=== PATIENT | male | born 1930 | race Caucasian/White ===

== ENCOUNTER 2017-01-05 16:12 | Inpatient (IN) | payer OTHER, BC ==
--- NOTE | 2017-01-05 16:31 | PDOC ---
Attending Attestation - Resident Resident Name: Eduardo Phillips - HPI HPI: 01/09/17 14:23 Pt presents to the ED complaining of R hip pain after mechanical fall. unable to ambulate after incident. - Physicial Exam PE: 01/09/17 14:24 Agree with above. R leg intact, shortened and externally rotated. - Medical Decision Making 01/09/17 14:24 Pt presents to the ED with hip pain after mechanical trip and fall. + intratrochanteric fx on xray. will admit to medicine and call orthopedics.
--- NOTE | 2017-01-05 16:38 | PDOC ---
History of Present Illness - General Chief Complaint: Injury Stated Complaint: FELL Time Seen by Provider: 01/05/17 16:15 - History of Present Illness Initial Comments: 01/05/17 16:29 86 yo M with h/o HLD, HTN, CAD, CABG, Prostate ca. and OA who presents with right hip pain following recent fall. Pt. states that he was sitting on his dining room chair 40 minutes ago and he attempted to stand up from his seat. He reached to grab the back of the chair and slipped, landing on his right hip. Pt. has been immobile since fall and arrived via EMS. He now complains of right sided proximal extremity pain at the right thigh and right hip. Pain aggravated with movement. Denies head/ elbow trauma or falling on an outstretched hand. Pt. with chronic numbness/tingling of right lower extremity d /t chemotherapy treatment. Denies Burning of distal extremities or new onset weakness. Denies BERGMAN, lightheadedness, LOC, SOB, neck stiffness. Does not ambulate with assistive device. Past History - Past Medical History Allergies/Adverse Reactions: Allergies Allergy/AdvReac Type Severity Reaction Status Date / Time No Known Allergies Allergy Verified 05/06/16 16:35 Home Medications: Ambulatory Orders Amlodipine Besylate [Norvasc -] 2.5 mg PO BID 01/05/17 Ascorbic Acid [Vitamin C -] 1,000 mg PO DAILY 01/05/17 Aspirin [Ecotrin] 81 mg PO BID 01/05/17 Clonidine HCl [Catapres -] 0.2 mg PO BID 01/05/17 Furosemide [Lasix -] 40 mg PO BID 01/05/17 Metoprolol Succinate [Toprol Xl -] 25 mg PO DAILY 01/05/17 Rosuvastatin [Crestor -] 20 mg PO DAILY 01/05/17 Valsartan/Hydrochlorothiazide [Valsartan-Hctz 320-12.5 mg Tab] 1 each PO DAILY 01/05/17 Cancer: Yes (PROSTATE CA) Cardiac Disorders: Yes (cardiac stents) HTN: Yes Hypercholesterolemia: Yes Kidney Stones: (nephrolithiasis) Suicide Attempt (Hx): No - Surgical History Abdominal Surgery: (3 stents) Cardiac Surgery: Yes (3 STENTS) - Psycho/Social/Smoking Cessation Hx Anxiety: No Suicidal Ideation: No Smoking Status: No Smoking History: Former smoker Years of Tobacco Use: 48 Have you smoked in the past 12 months: No Number of Cigarettes Smoked Daily: 0 If you are a former smoker, when did you quit?: smoked from age 20 to 59 Hx Alcohol Use: Yes (WINE WITH DINNER) Drug/Substance Use Hx: No Substance Use Type: None Hx Substance Use Treatment: No Review of Systems - Review of Systems Comments:: 01/05/17 16:38 GENERAL/CONSTITUTIONAL: No fever or chills. No weakness. HEAD, EYES, EARS, NOSE AND THROAT: No change in vision. No ear pain or discharge. No sore throat. CARDIOVASCULAR: No chest pain or shortness of breath RESPIRATORY: No cough, wheezing, or hemoptysis. GASTROINTESTINAL: No nausea, vomiting, diarrhea or constipation. GENITOURINARY: No dysuria, frequency, or change in urination. MUSCULOSKELETAL: +right hip pain. No neck or back pain. SKIN: No rash NEUROLOGIC: No headache, vertigo, loss of consciousness, or change in strength/ sensation. ENDOCRINE: No increased thirst. No abnormal weight change HEMATOLOGIC/LYMPHATIC: No anemia, easy bleeding, or history of blood clots. ALLERGIC/IMMUNOLOGIC: No hives or skin allergy. *Physical Exam - Physical Exam Comments: 01/05/17 17:00 GENERAL: Awake, alert, and fully oriented, in no acute distress HEAD: No signs of trauma, normocephalic, atraumatic EYES: PERRLA, EOMI, sclera anicteric, conjunctiva clear ENT: Auricles normal inspection, hearing grossly normal, nares patent, oropharynx clear without exudates. Moist mucosa NECK: Normal ROM, supple, no lymphadenopathy, JVD, or masses LUNGS: No distress, speaks full sentences, clear to auscultation bilaterally HEART: Regular rate and rhythm, normal S1 and S2, no murmurs, rubs or gallops, peripheral pulses normal and equal bilaterally. ABDOMEN: Soft, nontender, normoactive bowel sounds. No guarding, no rebound. No masses EXTREMITIES: Normal inspection, Normal range of motion. No clubbing or cyanosis. Palpable, equal, and symmetric posterior tibial pulses BL. BL L Edema BL. Left Leg / hip: Pain with passive flexion/extension, adduction/abduction of left thigh. Left leg is shortened and externally rotated. Limited exam d/t pain with active movement. Absent ecchymosis, and absent bony deformities. SKIN: Warm, Dry, normal turgor, no rashes or lesions noted. ED Treatment Course - RADIOLOGY Radiology Studies Ordered: Category Date Time Status HIP & PELVIS-RIGHT [RAD] Stat Radiology 01/05/17 16:28 Ordered Radiograph Interpretation: 01/05/17 19:45 Referring Physician: Eduardo Alan Patient Name: Cuauhtemoc Do THIS IS A PRELIMINARY REPORT FROM [facility] [employer] ADJUSTER IMAGES: 5 EXAM DATE AND TIME: 16:53:56.0 EXAM: X-RAY PELVIS AND RIGHT HIP Acute intertrochanteric fracture right femur with lesser trochanteric fragment displaced 14 mm medially. Surgical clips near lower pelvis. Clothing artifact projects over proximal thighs. Possible bone island left ilium. THIS DOCUMENT HAS BEEN ELECTRONICALLY SIGNED Geno Doyle M.D. 01/05/2017 19:14 DURGA Cano Please call [facility] [employer] [phone]) with questions. Medical Decision Making - Medical Decision Making 01/05/17 16:40 86 yo M with h/o HLD, HTN, CAD, CABG, Prostate ca. and OA who presents with right hip pain following recent fall. Pt. states that he was sitting on his dining room chair 40 minutes ago and he attempted to stand up from his seat. He reached to grab the back of the chair and slipped, landing on his right hip. He now complains of right sided proximal extremity pain at the right anterior thigh and right hip. No head/neck/back injury. Absent s/s of neurovascular injury/compromise. Physical exam reveals right leg externally rotated and slightly shortened. Pt.is hemodynamically stable. Obtain plain film left leg to r/o femoral dislocation/fracture. ED Course: 01/05/17 17:45 HIP AND PELVIS RIGHT RAD: 01/05/17 19:45 Referring Physician: Eduardo Phillips Patient Name: Cuauhtemoc Do THIS IS A PRELIMINARY REPORT FROM [facility] IMAGES: 5 EXAM DATE AND TIME: 16:53:56.0 EXAM: X-RAY PELVIS AND RIGHT HIP Acute intertrochanteric fracture right femur with lesser trochanteric fragment displaced 14 mm medially. Surgical clips near lower pelvis. Clothing artifact projects over proximal thighs. Possible bone island left ilium. THIS DOCUMENT HAS BEEN ELECTRONICALLY SIGNED Geno Doyle M.D. 01/05/2017 19:14 DURGA Cano Please call [facility] [employer] [phone] with questions. Per phone conversation with Dr. Davis admit to [facility] and consult Dr. Ramos. *DC/Admit/Observation/Transfer Diagnosis at time of Disposition: Trochanteric fracture of right femur Qualifiers: Encounter type: initial encounter Fracture type: closed Qualified Code(s): S72.101A - Unspecified trochanteric fracture of right femur, initial encounter for closed fracture - Discharge Dispostion Admit: Yes - Referrals Referrals: Buck Torres MD [Primary Care Provider] - - Attestations Physician Attestion: 01/05/17 20:04 I, Dr. Eduardo Phillips, attest that this document has been prepared under my direction and personally reviewed by me in its entirety. I further attest, that it accurately reflects all work, treatment, procedures and medical decision -making performed by me.
[2017-01-05 21:21] LABS: BASOPHIL 0.6 % (0-2.0); EOSINOPHIL 0.2 % (0-4.5); MCH 26.6 pg (25.7-33.7); MCHC 32.3 g/dl (32.0-35.9); MEAN CELL VOLUME 82.4 fl (80-96); MEAN PLT VOLUME 8.1 fl (7.5-11.1); NEUTROPHILS 89.9 % (42.8-82.8); PLATELET COUNT 323 K/MM3 (134-434); RDW 18.8 % (11.9-15.9)
[2017-01-05 21:34] LABS: INR 1.12 (0.82-1.09); PROTHROMBIN TIME (PATIENT) 12.4 SEC (9.98-11.88)
[2017-01-05 21:43] LABS: ALBUMIN 3.1 g/dl (3.4-5.0); ANION GAP 10 (8-16); CALCIUM 9.1 mg/dL (8.5-10.1); CO2 28 mmol/L (21-32); CREATININE 1.3 mg/dL (0.7-1.3); GLUCOSE,RANDOM 154 mg/dL (74-106); SGOT/AST 19 U/L (15-37); SGPT/ALT 19 U/L (12-78)
[2017-01-05 21:45] LABS: ALK PHOS 101 U/L (45-117); BILIRUBIN,TOTAL 0.4 mg/dL (0.2-1.0); TOT PROT 7.1 g/dl (6.4-8.2)
[2017-01-05 22:39] VITALS: BMI 31.4
[2017-01-05] MEDS: ACETAMINOPHEN 325 MG TABLET (FP) PO PRN (23:16)
[2017-01-05] MEDS: oxyCODONE HCL 5 MG TABLET PO PRN (23:16)
[2017-01-05] MEDS: amLODIPine BESYLATE 2.5 MG TABLET (FP) PO SCH (23:26)
[2017-01-05] MEDS: cloNIDine HCL 0.1 MG TABLET PO SCH (23:26)
[2017-01-06] MEDS ORDERED: FUROSEMIDE 20 MG TABLET (FP) PO SCH (06:00)
[2017-01-06] MEDS: oxyCODONE HCL 5 MG TABLET PO PRN ×2 (07:40→21:29)
[2017-01-06] MEDS: ACETAMINOPHEN 325 MG TABLET (FP) PO PRN ×2 (07:40→21:29)
[2017-01-06 08:29] LABS: BASOPHIL 0.6 % (0-2.0); EOSINOPHIL 0.3 % (0-4.5); MCH 26.7 pg (25.7-33.7); MCHC 32.2 g/dl (32.0-35.9); MEAN CELL VOLUME 82.8 fl (80-96); NEUTROPHILS 76.5 % (42.8-82.8); PLATELET COUNT 291 K/MM3 (134-434); RDW 18.9 % (11.9-15.9); WHITE BLOOD COUNT 11.1 K/mm3 (4.0-10.0)
--- NOTE | 2017-01-06 09:10 | CON.ORTH ---
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 Cardio/Vascular: Yes: CAD, HTN, Hyperlipdemia, Other (had three cardiac stents placed in 2001) Gastrointestinal: No: GI Bleed Renal/: Yes: Cancer (prostate carcinoma treated with external beam RT and now on Lupron and Casodex), Other (nephrolithiasis, history of prastate cancer) Musculoskeletal: Yes: Osteoarthritis (knees), Other (bilateraly knee pain with ambulation, has had steroir injections within the past year) Rheumatology: Yes: Gout Endocrine: No: Diabetes Insipidus Dermatology: Yes: Psoriasis, Other - Past Surgical History Past Surgical History: Yes: Stent - Alcohol/Substance Use Hx Alcohol Use: No History of Substance Use: reports: None - Smoking History Smoking history: Former smoker Have you smoked in the past 12 months: No Aproximately how many cigarettes per day: 0 If you are a former smoker, when did you quit?: smoked from age 20 to 59 - Social History Usual Living Arrangement: With Spouse ADL: Independent History of Recent Travel: No Home Medications - Allergies Allergies/Adverse Reactions: Allergies Allergy/AdvReac Type Severity Reaction Status Date / Time No Known Allergies Allergy Verified 05/06/16 16:35 - Home Medications Home Medications: Ambulatory Orders Amlodipine Besylate [Norvasc -] 2.5 mg PO BID 01/05/17 Ascorbic Acid [Vitamin C -] 1,000 mg PO DAILY 01/05/17 Aspirin [Ecotrin] 81 mg PO BID 01/05/17 Clonidine HCl [Catapres -] 0.2 mg PO BID 01/05/17 Furosemide [Lasix -] 40 mg PO BID 01/05/17 Metoprolol Succinate [Toprol Xl -] 25 mg PO DAILY 01/05/17 Rosuvastatin [Crestor -] 20 mg PO DAILY 01/05/17 Valsartan/Hydrochlorothiazide [Valsartan-Hctz 320-12.5 mg Tab] 1 each PO DAILY 01/05/17 Physical Exam for Ortho Vital Signs: Vital Signs Temperature 99.2 F 01/06/17 08:00 Pulse Rate 72 01/06/17 08:00 Respiratory Rate 18 01/06/17 08:00 Blood Pressure 157/80 01/06/17 08:00 O2 Sat by Pulse Oximetry (%) 95 01/05/17 22:18 Labs: CBC, BMP 01/06/17 07:45 01/05/17 20:30 INR, PTT INR 1.12 (0.82-1.09) 01/05/17 20:30 - Lower Extremity Hip: Yes: Right, Decreased ROM, Leg Externally Rotated, Leg Shortened, Pain, Swelling, Other (nvi) Imaging - Results X-ray: Report Reviewed, Image Reviewed Assessment/Plan 86 yo M with h/o HLD, HTN, CAD, CABG, Prostate ca.with mets to left humerus ( received chemo and is awaiting radiation tx) and OA who presents with right hip pain following recent fall. a/p right displaced IT fx Risks and benefits were d/w pt and in detail will need right IM gamma nail Surgical clearance NPO OR this afternoon if cleared d/w Dr. Ramos
[2017-01-06] MEDS ORDERED: PT OWN MED DRAWER 7, Y5N ONE (09:18)
[2017-01-06] MEDS: METOPROLOL SUCCINATE 25 MG TAB.SR.24H (FP) PO SCH (09:20)
[2017-01-06] MEDS: VALSARTAN 160 MG TABLET (UD) PO SCH (09:20)
[2017-01-06] MEDS: amLODIPine BESYLATE 2.5 MG TABLET (FP) PO SCH ×2 (09:21→21:22)
--- NOTE | 2017-01-06 09:52 | CON.CARD ---
Consult Consult Specialty:: cardio Referred by:: jacob Reason for Consultation:: preop - History of Present Illness Chief Complaint: hip pain History of Present Illness: 86 yo M with h/o HLD, HTN, CAD, CABG, Prostate cancer with mets to left humerus (received chemo and is awaiting radiation tx) and OA who presents with right hip pain following recent fall. Plan is for OR today when/if medically cleared pt reports mechanical fall, tripped on rug in dining room and missed object he tried to brace himself on. no presync/syncope has had no cp or palpitations notes incr'd sob on activity/exertion for few months. saw sridhar his cardio who did stress test--no ischemia. has been on lasix 20 bid for long time--dose not increased at recent eval. denies orthopnea had PCI 2001, ? 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 Cardio/Vascular: Yes: CAD, HTN, Hyperlipdemia, Other (had three cardiac stents placed in 2001) Gastrointestinal: No: GI Bleed Renal/: Yes: Cancer (prostate carcinoma treated with external beam RT and now on Lupron and Casodex), Other (nephrolithiasis, history of prastate cancer) Musculoskeletal: Yes: Osteoarthritis (knees), Other (bilateraly knee pain with ambulation, has had steroir injections within the past year) Rheumatology: Yes: Gout Endocrine: No: Diabetes Insipidus Dermatology: Yes: Psoriasis, Other - Past Surgical History Past Surgical History: Yes: Stent - Alcohol/Substance Use Hx Alcohol Use: No History of Substance Use: reports: None - Smoking History Smoking history: Former smoker Have you smoked in the past 12 months: No Aproximately how many cigarettes per day: 0 If you are a former smoker, when did you quit?: smoked from age 20 to 59 - Social History Usual Living Arrangement: With Spouse ADL: Independent History of Recent Travel: No Home Medications - Allergies Allergies/Adverse Reactions: Allergies Allergy/AdvReac Type Severity Reaction Status Date / Time No Known Allergies Allergy Verified 05/06/16 16:35 - Home Medications Home Medications: Ambulatory Orders Amlodipine Besylate [Norvasc -] 2.5 mg PO BID 01/05/17 Ascorbic Acid [Vitamin C -] 1,000 mg PO DAILY 01/05/17 Aspirin [Ecotrin] 81 mg PO BID 01/05/17 Clonidine HCl [Catapres -] 0.2 mg PO BID 01/05/17 Furosemide [Lasix -] 40 mg PO BID 01/05/17 Metoprolol Succinate [Toprol Xl -] 25 mg PO DAILY 01/05/17 Rosuvastatin [Crestor -] 20 mg PO DAILY 01/05/17 Valsartan/Hydrochlorothiazide [Valsartan-Hctz 320-12.5 mg Tab] 1 each PO DAILY 01/05/17 Family Disease History - Family Disease History Family History: Denies (no cmp) Review of Systems - Review of Systems Constitutional: denies: Chills, Fever Eyes: denies: Eye Pain HENT: denies: Nasal Congestion Neck: denies: Stiffness Cardiovascular: denies: Palpitations Respiratory: denies: Orthopnea, PND Gastrointestinal: denies: Diarrhea, Rectal Bleeding Genitourinary: denies: Burning, Hematuria Musculoskeletal: denies: Muscle Pain Integumentary: denies: Rash Neurological: denies: Numbness, Seizure, Syncope Endocrine: denies: Excessive Sweating Hematology/Lymphatic: denies: Excessive Bleeding Vital Signs: Vital Signs Temperature 99.2 F 01/06/17 08:00 Pulse Rate 72 01/06/17 08:00 Respiratory Rate 18 01/06/17 08:00 Blood Pressure 157/80 01/06/17 08:00 O2 Sat by Pulse Oximetry (%) 95 01/05/17 22:18 Constitutional: Yes: Well Nourished, No Distress Eyes: No: Sclera Icterus HENT: No: Nasal Congestion Neck: No: Decreased ROM Respiratory: Yes: CTA Bilaterally, Rales, Wheezes. No: Accessory Muscle Use Gastrointestinal: Yes: Normal Bowel Sounds. No: Distention, Hepatomegaly, Palpable Mass, Tenderness Cardiovascular: Yes: Regular Rate and Rhythm JVD: No Carotid Bruit: No PMI: Non-Displaced Heart Sounds: Yes: S1, S2. No: Gallop Murmur: No: Systolic Murmur, Diastolic Murmur Musculoskeletal: Yes: Other (No kyphosis) Extremities: No: Cold, Cyanosis Edema: No Peripheral Pulses: 2+ Left Carotid, 2+ Right Carotid, 2+ Left Doralis Pedis, 2+ Right Dorsalis Pedis Integumentary: No: Jaundice Neurological: Yes: Alert, Oriented (x3) Psychiatric: No: Agitated - Other Data Labs, Other Data: CBC, BMP 01/06/17 07:45 01/05/17 20:30 INR, PTT INR 1.12 (0.82-1.09) 01/05/17 20:30 Imaging - Results Chest X-ray: Report Reviewed, Image Reviewed Assessment/Plan ECG: NSR, RBBB/LAFB; no path q's; nonsp ST-Ts anteroseptal leads likely related to RBBB--changed vs prior 2014 here, and vs prior at dr waller (LBBB then--?) CXR (gitig read): no effusions; no vasc redistribution; mild incr interstitial markings new vs prior (08/2015) ? chf; increased shadow R mediastinum from upper to lower lobes ? rotation/technique-dependent MPI 11/09 (persantine): no ST changes, no ischemia, nl EF (61%) Echo 2013: nl LV size/EF; mild LVH; severe RVE (no comment on fxn); mod LAE; mild AI; mild TR; estimated PASP 47 86 yo M with h/o HLD, HTN, CAD, CABG, Prostate ca.with mets to left humerus ( received chemo and is awaiting radiation tx) and OA who presents with right hip pain following recent fall. s/p fall with hip frx: HTN: -bp mildly up here, likely pain related -cont home meds, observe BP trend h/o CAD with prior CABG: -on ASA, statin, BB, ARB regimen at home--cont same -EKG here with new RBBB and LAFB vs 2015 prior -sees dr waller for cardiology--stress test 2 mo ago which was normal -no suspected angina sx's (chf appears acute on CHRONIC) -check stat cardiac enzymes--if negative, this is sufficient to rule out acute ischemia in absence of suspicious sx's suspect acute CHF: -congestion possible on CXR -pt with increased NUNO sx's at home for past few months, saw dr waller no echo done--prior long term maintenance regimen (lasix 20 bid) continued -here with wheezes/rales on lung exam (in absence of prior asthma/copd hx) -BNP -lasix 40 IVP to start abnormal CXR: -? new density R upper/mid/lower lung lynn along mediastinum--rule out thoracic aorta aneurysm (confirmed no known aneurysm hx per dr waller) -will get CT chest today prior to OR pulm HTN: -peak estimated PASP on 2013 echo only 47, yet RV felt severely enlarged then ( ? RV fxn) -? chronic LV HFpEF-->RV failure -? pulm HTN sec to other -needs updated echo to r/o severe pulm HTN prior to OR preop CV eval: -Revised CV Risk Index = 2, unknown functional capacity -suspect active mildly decompensated chf at present--anticipate will promptly improve after 1-2 doses of iv lasix -for echo today to r/o severe pulm HTN prior to OR -doubt active myocardial ischemia, and normal nuclear stress test 11/09 as abgove --f/u stat troponin -further periop CV risk recs to follow pending echo/CT chest and clinical course
[2017-01-06 09:59] LABS: PH,URINE 5.5 (5.0-8.0); URINE APPEARANCE CLEAR; URINE BILIRUBIN NEGATIVE (NEGATIVE); URINE BLOOD NEGATIVE (NEGATIVE); URINE COLOR LT. YELLOW; URINE GLUCOSE (UA) NEGATIVE (NEGATIVE); URINE KETONE NEGATIVE (NEGATIVE); URINE LEUK ESTERASE NEGATIVE (NEGATIVE); URINE NITRITE NEGATIVE (NEGATIVE); URINE PROTEIN NEGATIVE (NEGATIVE); URINE UROBILINOGEN 0.2 mg/dL (0.2-1.0)
--- NOTE | 2017-01-06 10:13 | HP ---
Admitting History and Physical - Primary Care Physician PCP: Buck Torres - Admission Chief Complaint: Right hip fracture History of Present Illness: 86 y/o male with hypertension, CAD with stent, metastatic prostate carcinoma fell from a chair and landed on the right hip and was found to have a right hip fracture and is admitted for further management. Denies chest pain, SOB ,syncope. Undergoing chemotherapy at [facility] with Taxotere and Prednisone and Lupron. 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 Cardiovascular: Yes: CAD, HTN, Hyperlipdemia, Other (had three cardiac stents placed in 2001) Gastrointestinal: No: GI Bleed Renal/: Yes: Cancer (prostate carcinoma treated with external beam RT and now on Lupron and Casodex and chemotherapy with Taxotere and Prednisolne), Other ( nephrolithiasis, history of prastate cancer) Musculoskeletal: Yes: Osteoarthritis (knees), Other (bilateraly knee pain with ambulation, has had steroir injections within the past year) Rheumatology: Yes: Gout Endocrine: No: Diabetes Insipidus Dermatology: Yes: Psoriasis, Other - Past Surgical History Past Surgical History: Yes: Stent (Coronary angioplasty with two stents in 2001) Additional Past Surgical History: Right popliteal artery aneurysm stented by .Right Femoral/ popliteal bypass graft by Dr. Prince - Smoking History Smoking history: Former smoker Have you smoked in the past 12 months: No Aproximately how many cigarettes per day: 0 If you are a former smoker, when did you quit?: smoked from age 20 to 59 - Alcohol/Substance Use Hx Alcohol Use: No History of Substance Use: reports: None - Social History ADL: Independent History of Recent Travel: No Home Medications - Allergies Allergies/Adverse Reactions: Allergies Allergy/AdvReac Type Severity Reaction Status Date / Time No Known Allergies Allergy Verified 05/06/16 16:35 - Home Medications Home Medications: Ambulatory Orders Amlodipine Besylate [Norvasc -] 2.5 mg PO BID 01/05/17 Ascorbic Acid [Vitamin C -] 1,000 mg PO DAILY 01/05/17 Aspirin [Ecotrin] 81 mg PO BID 01/05/17 Clonidine HCl [Catapres -] 0.2 mg PO BID 01/05/17 Furosemide [Lasix -] 40 mg PO BID 01/05/17 Metoprolol Succinate [Toprol Xl -] 25 mg PO DAILY 01/05/17 Rosuvastatin [Crestor -] 20 mg PO DAILY 01/05/17 Valsartan/Hydrochlorothiazide [Valsartan-Hctz 320-12.5 mg Tab] 1 each PO DAILY 01/05/17 Review of Systems - Review of Systems Constitutional: reports: No Symptoms Eyes: reports: No Symptoms HENT: reports: No Symptoms Neck: reports: No Symptoms Cardiovascular: reports: Shortness of Breath (SOB was worse about two months ago but has gradually improved and feel NUNO) Respiratory: reports: No Symptoms Gastrointestinal: reports: No Symptoms Genitourinary: reports: No Symptoms Musculoskeletal: reports: Back Pain, Joint Pain Integumentary: reports: No Symptoms Endocrine: reports: No Symptoms Psychiatric: reports: No Symptoms Physical Examination Vital Signs: Vital Signs Temperature 99.2 F 01/06/17 08:00 Pulse Rate 72 01/06/17 08:00 Respiratory Rate 18 01/06/17 08:00 Blood Pressure 157/80 01/06/17 08:00 O2 Sat by Pulse Oximetry (%) 95 01/05/17 22:18 Constitutional: Yes: Well Nourished, No Distress, Calm Eyes: Yes: Conjunctiva Clear, EOM Intact HENT: Yes: WNL Neck: Yes: Supple Cardiovascular: Yes: Regular Rate and Rhythm, S1, S2 Respiratory: Yes: Regular, Rales Gastrointestinal: Yes: Normal Bowel Sounds, Soft Breast(s): Yes: WNL Musculoskeletal: Yes: Joint Stiffness Edema: No Peripheral Pulses WNL: Yes Integumentary: Yes: WNL Neurological: Yes: Alert, Oriented, Cran Nerves II-XII Intact ...Motor Strength: WNL Psychiatric: Yes: Alert, Oriented Labs: CBC, BMP 01/06/17 07:45 01/05/17 20:30 Imaging - Results Chest X-ray: Report Reviewed, Image Reviewed EKG: Report Reviewed Problem List - Problems (1) Trochanteric fracture of right femur Assessment/Plan: Needs internal fixation Code(s): S72.101A - UNSP TROCHANTERIC FRACTURE OF RIGHT FEMUR, INIT FOR CLOS FX Qualifiers: Encounter type: initial encounter Fracture type: closed Qualified Code(s): S72.101A - Unspecified trochanteric fracture of right femur, initial encounter for closed fracture (2) Coronary atherosclerosis Assessment/Plan: No chest pain at present. Had two stents in 2001. Recent stress test is negative Code(s): I25.10 - ATHSCL HEART DISEASE OF [place] CORONARY ARTERY W/O ANG PCTRS (3) Hyperlipidemia Code(s): E78.5 - HYPERLIPIDEMIA, UNSPECIFIED (4) Hypertension Assessment/Plan: Borderline elevation of BP as the dose of Valsartan was lowered to 160 vs 320 at home Code(s): I10 - ESSENTIAL (PRIMARY) HYPERTENSION (5) Osteoarthritis of knees, bilateral Code(s): M17.0 - BILATERAL PRIMARY OSTEOARTHRITIS OF KNEE (6) Prostate carcinoma Assessment/Plan: Has metastatic prostate carcinoma CRPC and undergoing chemotherapy with Taxotere and Prednisone and is pain free although PSA has risen slightly but PET scan does not show any new sites of the disease Code(s): C61 - MALIGNANT NEOPLASM OF PROSTATE (7) Peripheral vascular disease Assessment/Plan: 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 Also had a fem/popliteal artery bypass graft. Does not have any claudication Code(s): I73.9 - PERIPHERAL VASCULAR DISEASE, UNSPECIFIED (8) CHF (congestive heart failure) Code(s): I50.9 - HEART FAILURE, UNSPECIFIED Assessment/Plan CHF: had worse SOB about two months ago which gradually has improved. Chest XRAY showed bilateral congestion and the BNP was markedly elevated. He was given IV Lasix 40 mg with marked improvement. 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 Hypertension: Has been on multiple drugs combination with very good control of the HTN. Slight rise in BP systolic is due to lowering of the valsartan to 160mg. Right hip fracture requires internal fixation
[2017-01-06] MEDS: cloNIDine HCL 0.1 MG TABLET PO SCH ×2 (10:44→21:21)
[2017-01-06] MEDS: FUROSEMIDE 40 MG/4 ML INJECTABLE VIAL IVPUSH SCH (11:05)
[2017-01-06 11:24] LABS: TROPONIN I 0.11 ng/ml (0.00-0.05)
[2017-01-06] MEDS ORDERED: ROSUVASTATIN CA 10 MG TABLET (FP) ONE (21:09)
[2017-01-06] MEDS ORDERED: ROSUVASTATIN CA 20 MG TABLET (FP) PO SCH (22:00)
[2017-01-07 07:35] LABS: BASOPHIL 0.5 % (0-2.0); EOSINOPHIL 2.7 % (0-4.5); MCH 26.9 pg (25.7-33.7); MEAN CELL VOLUME 83.8 fl (80-96); MEAN PLT VOLUME 7.9 fl (7.5-11.1); NEUTROPHILS 77.4 % (42.8-82.8); PLATELET COUNT 239 K/MM3 (134-434); RDW 18.7 % (11.9-15.9); WHITE BLOOD COUNT 10.5 K/mm3 (4.0-10.0)
[2017-01-07] MEDS: ACETAMINOPHEN 325 MG TABLET (FP) PO PRN ×2 (07:44→21:08)
[2017-01-07] MEDS: oxyCODONE HCL 5 MG TABLET PO PRN ×2 (07:44→21:03)
[2017-01-07 08:04] LABS: ANION GAP 5 (8-16); CALCIUM 9.2 mg/dL (8.5-10.1); CO2 31 mmol/L (21-32); GLUCOSE,RANDOM 103 mg/dL (74-106)
[2017-01-07 08:42] LABS: CPK 63 IU/L (39-308)
[2017-01-07] MEDS ORDERED: PT OWN MED DRAWER 7, Y5N ONE (09:55)
[2017-01-07] MEDS: amLODIPine BESYLATE 2.5 MG TABLET (FP) PO SCH ×2 (09:57→21:04)
[2017-01-07] MEDS: FUROSEMIDE 40 MG/4 ML INJECTABLE VIAL IVPUSH SCH (09:57)
[2017-01-07] MEDS: VALSARTAN 160 MG TABLET (UD) PO SCH (09:57)
[2017-01-07] MEDS: METOPROLOL SUCCINATE 25 MG TAB.SR.24H (FP) PO SCH (09:57)
[2017-01-07] MEDS: cloNIDine HCL 0.1 MG TABLET PO SCH ×2 (09:57→21:03)
[2017-01-07] MEDS ORDERED: POTASSIUM CHLORIDE TABS 20 MEQ TABLET.ER (FP) PO ONE (10:45)
--- NOTE | 2017-01-07 13:16 | PN ---
Progress Note (short form) - Note Progress Note: Chief Complaint: hip pain History of Present Illness: S: no events overnight. + LE pain. comfortable lying flat. no sob at rest, cp, palps, dizziness. Endorses chronic nuno since chemotherapy. Current Medications Acetaminophen (Tylenol -) 325 mg PO Q4H PRN PRN Reason: PAIN Stop: 01/08/17 23:05 Last Admin: 01/07/17 07:44 Dose: 325 mg Amlodipine Besylate (Norvasc -) 2.5 mg PO BID [facility] Last Admin: 01/07/17 09:57 Dose: 2.5 mg Clonidine (Catapres -) 0.2 mg PO BID [facility] Last Admin: 01/07/17 09:57 Dose: 0.2 mg Furosemide (Lasix Injection -) 40 mg IVPUSH DAILY [facility] Last Admin: 01/07/17 09:57 Dose: 40 mg Metoprolol Succinate (Toprol Xl -) 25 mg PO DAILY [facility] Last Admin: 01/07/17 09:57 Dose: 25 mg Oxycodone HCl (Roxicodone -) 5 mg PO Q4H PRN PRN Reason: PAIN Last Admin: 01/07/17 07:44 Dose: 5 mg Rosuvastatin Calcium (Crestor -) 20 mg PO HS [facility] Last Admin: 01/06/17 21:20 Dose: 20 mg Valsartan (Diovan -) 160 mg PO DAILY [facility] Last Admin: 01/07/17 09:57 Dose: 160 mg Vital Signs - 24 hr 01/06/17 01/06/17 01/06/17 13:39 18:00 21:00 Temperature 97.9 F 98.7 F Pulse Rate 72 68 Respiratory 17 20 20 Rate Blood Pressure 138/52 153/55 O2 Sat by Pulse 97 Oximetry (%) 01/06/17 01/07/17 01/07/17 22:00 06:32 09:00 Temperature 99.6 F 99.3 F Pulse Rate 70 66 Respiratory 20 20 Rate Blood Pressure 181/68 149/65 O2 Sat by Pulse 97 Oximetry (%) 01/07/17 09:18 Temperature 99.1 F Pulse Rate 77 Respiratory 20 Rate Blood Pressure 145/66 O2 Sat by Pulse Oximetry (%) Intake & Output 01/05/17 01/06/17 01/07/17 01/08/17 07:59 07:59 07:59 07:59 Output Total 100 600 Balance -100 -600 Weight 206 lb 8 oz Constitutional: Yes: Well Nourished, No Distress Eyes: No: Sclera Icterus HENT: No: Nasal Congestion Neck: No: Decreased ROM Respiratory: Yes: CTA Bilaterally, Rales, Wheezes. No: Accessory Muscle Use Gastrointestinal: Yes: Normal Bowel Sounds. No: Distention, Hepatomegaly, Palpable Mass, Tenderness Cardiovascular: Yes: Regular Rate and Rhythm JVD: No Carotid Bruit: No PMI: Non-Displaced Heart Sounds: Yes: S1, S2. No: Gallop Murmur: No: Systolic Murmur, Diastolic Murmur Musculoskeletal: Yes: Other (No kyphosis) Extremities: No: Cold, Cyanosis Edema: No Peripheral Pulses: 2+ Left Carotid, 2+ Right Carotid, 2+ Left Doralis Pedis, 2+ Right Dorsalis Pedis Integumentary: No: Jaundice Neurological: Yes: Alert, Oriented (x3) Psychiatric: No: Agitated - Other Data Labs, Other Data: CBC, BMP 01/07/17 06:30 01/07/17 06:30 Laboratory Tests 01/06/17 01/07/17 10:30 06:30 Creatine Kinase 69 63 Troponin I 0.11 H D 0.10 H B-Natriuretic Peptide 1997.22 H Imaging - Results Chest X-ray: Report Reviewed, Image Reviewed chest CT: extensive chronic interstitial lung disease, no signficant pleural effusions. (images and report reviewed) Assessment/Plan ECG: NSR, RBBB/LAFB; no path q's; nonsp ST-Ts anteroseptal leads likely related to RBBB--changed vs prior 2014 here, and vs prior at dr waller (LBBB then--?) CXR (gitig read): no effusions; no vasc redistribution; mild incr interstitial markings new vs prior (08/2015) ? chf; increased shadow R mediastinum from upper to lower lobes ? rotation/technique-dependent MPI 11/09 (persantine): no ST changes, no ischemia, nl EF (61%) Echo 12/2016: n lv/rv. mod lae. ra not well visualized. rvsp 54. mild ao dilation Echo 2013: nl LV size/EF; mild LVH; severe RVE (no comment on fxn); mod LAE; mild AI; mild TR; estimated PASP 47 86 yo M with h/o HLD, HTN, CAD, CABG, Prostate ca.with mets to left humerus ( received chemo and is awaiting radiation tx) and OA who presents with right hip pain following recent fall. HTN: -bp mildly up here, likely pain related -cont home meds, observe BP trend h/o CAD with prior CABG: -on ASA, statin, BB, ARB regimen at home--cont same -EKG here with new RBBB and LAFB vs 2015 prior -sees dr waller for cardiology--stress test 2 mo ago which was normal -no suspected angina sx's (chf appears acute on CHRONIC). CE's borderline, with flat trend no concern for ischemia. suspect acute diastolic CHF: -congestion possible on CXR -pt with increased NUNO sx's at home for past few months, saw dr waller no echo done--prior halfway maintenance regimen (lasix 20 bid) continued -here with wheezes/rales on lung exam (in absence of prior asthma/copd hx) -BNP -lasix 40 IVP 01/06 --> improvement in symptoms as well as creatinine. Lung exam now clear. Can resume home lasix dosing after surgery. abnormal CXR: -? new density R upper/mid/lower lung lynn along mediastinum--rule out thoracic aorta aneurysm (confirmed no known aneurysm hx per dr waller) - CT chest --> c/w interstital lung disease. pulm HTN: -peak estimated PASP on 2014 echo only 47, yet RV felt severely enlarged then ( ? RV fxn) -? chronic LV HFpEF-->RV failure -? pulm HTN sec to other - updated echo confirms moderate- severe pulm HTN. Extensive interstitial lung disease noted on ct scan. preop CV eval: -Revised CV Risk Index = 2, with poor functional capacity. unable to walk a flight of stairs since recent pulmonary problems (possible chemotherapy related pulmonary disease) -acute diastolic chf now resolved s/p lasix. Stable from CV perspective to proceed with surgery. However pulmonary status is separate issue. Discussed CT findings/pulmonary hypertension with anesthesia and they are aware of history. Plan is for local sedation/avoidance of general anesthesia.
[2017-01-07] MEDS ORDERED: MIDAZOLAM HCL 2 MG/2 ML SINGLE DOSE VIAL ONE (17:12)
[2017-01-07] MEDS ORDERED: ETOMIDATE 20 MG/10 ML AMPUL IVPUSH ONE (17:13)
[2017-01-07] MEDS ORDERED: SODIUM CHLORIDE 0.9% P/F 10 ML VIAL IJ ONE (17:14)
[2017-01-07] MEDS ORDERED: ceFAZolin SODIUM 1 GM VIAL ONE (17:14)
[2017-01-07] MEDS ORDERED: LIDOCAINE HCL/PF 2% SDV 5ML VIAL ONE (17:16)
[2017-01-07] MEDS ORDERED: ceFAZolin SODIUM 1 GM VIAL IVPB ONE (17:32)
[2017-01-07] MEDS ORDERED: DEXAMETHASONE SOD PHOSPHATE 4 MG/1 ML VIAL ONE (17:33)
[2017-01-07] MEDS ORDERED: GLYCOPYRROLATE 0.2 MG/1 ML VIAL ONE (17:44)
--- NOTE | 2017-01-07 18:19 | OP ---
Operative Note - Note: Operative Date: 01/07/17 Pre-Operative Diagnosis: RIGHT IT HIP FX WITH LONG LESSER TROCH EXTENSION Operation: RIGHT LONG GAMMA NAILING Post-Operative Diagnosis: Same as Pre-op Anesthesia: General Estimated Blood Loss (mls): 100 Operative Report Dictated: Yes
[2017-01-07] MEDS ORDERED: PROMETHAZINE HCL 25 MG/1 ML VIAL IVPUSH PRN (18:22)
[2017-01-07] MEDS ORDERED: ONDANSETRON 4 MG/2 ML VIAL IVPUSH PRN (18:22)
[2017-01-07] MEDS ORDERED: LACTATED RINGERS SOLUTION 1,000 ML IV SCH (18:30)
[2017-01-07] MEDS: ROSUVASTATIN CA 10 MG TABLET (FP) PO SCH (21:02)
--- NOTE | 2017-01-07 21:37 | PN ---
Progress Note, Physician History of Present Illness: 86 y/o who underwent right hip pinning by . He tolerated procedure well and is fully alet without any resp. distress , chest pain, N/V. Was given Percocet for pain and is without any pain at present. - Current Medication List Current Medications: Active Medications Acetaminophen (Tylenol -) 325 mg PO Q4H PRN PRN Reason: PAIN Stop: 01/08/17 23:05 Last Admin: 01/07/17 21:08 Dose: 325 mg Amlodipine Besylate (Norvasc -) 2.5 mg PO BID [facility] Last Admin: 01/07/17 21:04 Dose: 2.5 mg Clonidine (Catapres -) 0.2 mg PO BID [facility] Last Admin: 01/07/17 21:03 Dose: 0.2 mg Enoxaparin Sodium (Lovenox -) 40 mg SQ DAILY [facility] Fentanyl (Sublimaze Injection -) 50 mcg IVPUSH [id number] PRN PRN Reason: PAIN Stop: 01/10/17 18:23 Last Admin: 01/07/17 18:55 Dose: 50 mcg Furosemide (Lasix Injection -) 40 mg IVPUSH DAILY [facility] Cefazolin Sodium/Dextrose (Ancef 2 Gm Premixed Ivpb -) 50 mls @ 200 mls/hr IVPB Q8H [facility] Stop: 01/08/17 07:44 Metoprolol Succinate (Toprol Xl -) 25 mg PO DAILY [facility] Ondansetron HCl (Zofran Injection) 4 mg IVPUSH Q6H PRN PRN Reason: NAUSEA AND/OR VOMITING Stop: 01/08/17 00:23 Oxycodone HCl (Roxicodone -) 5 mg PO Q4H PRN PRN Reason: PAIN Last Admin: 01/07/17 21:03 Dose: 5 mg Promethazine HCl (Phenergan Injection -) 12.5 mg IVPUSH Q6H PRN PRN Reason: NAUSEA-FOR RESCUE AFTER 15 MIN Stop: 01/08/17 00:23 Rosuvastatin Calcium (Crestor -) 20 mg PO HS [facility] Last Admin: 01/07/17 21:02 Dose: 20 mg Valsartan (Diovan -) 160 mg PO DAILY [facility] - Objective Vital Signs: Vital Signs Temperature 98.9 F 01/07/17 20:31 Pulse Rate 74 01/07/17 20:31 Respiratory Rate 18 01/07/17 20:31 Blood Pressure 148/76 01/07/17 20:31 O2 Sat by Pulse Oximetry (%) 96 01/07/17 20:31 Constitutional: Yes: Well Nourished, No Distress, Calm Eyes: Yes: Conjunctiva Clear HENT: Yes: WNL Neck: Yes: Supple Cardiovascular: Yes: Regular Rate and Rhythm, S1, S2 Respiratory: Yes: Regular, CTA Bilaterally Gastrointestinal: Yes: Normal Bowel Sounds, Soft Genitourinary: Yes: WNL Musculoskeletal: Yes: Joint Stiffness Extremities: Yes: WNL, Other (moves his toes without any difficulty sensory in right lower extremity is normal) Edema: No Peripheral Pulses WNL: Yes Integumentary: Yes: WNL Wound/Incision: Yes: Clean/Dry Neurological: Yes: Alert, Oriented, Cran Nerves II-XII Intact Psychiatric: Yes: Alert, Oriented Labs: CBC, BMP 01/07/17 06:30 01/07/17 06:30 INR, PTT INR 1.12 (0.82-1.09) 01/05/17 20:30 - ....Imaging X-ray: Image Reviewed Problem List - Problems (1) Trochanteric fracture of right femur Assessment/Plan: Underwent hip pinning and tolerated procedure well Code(s): S72.101A - UNSP TROCHANTERIC FRACTURE OF RIGHT FEMUR, INIT FOR CLOS FX Qualifiers: Encounter type: initial encounter Fracture type: closed Qualified Code(s): S72.101A - Unspecified trochanteric fracture of right femur, initial encounter for closed fracture (2) Coronary atherosclerosis Assessment/Plan: No chest pain, no palpitations, no SOB Code(s): I25.10 - ATHSCL HEART DISEASE OF [place] CORONARY ARTERY W/O ANG PCTRS (3) Hyperlipidemia Code(s): E78.5 - HYPERLIPIDEMIA, UNSPECIFIED (4) Hypertension Assessment/Plan: BP slightly elevated to 138 to 148 systolic and will need to increase Valsartan Code(s): I10 - ESSENTIAL (PRIMARY) HYPERTENSION (5) Osteoarthritis of knees, bilateral Code(s): M17.0 - BILATERAL PRIMARY OSTEOARTHRITIS OF KNEE (6) Prostate carcinoma Code(s): C61 - MALIGNANT NEOPLASM OF PROSTATE (7) Peripheral vascular disease Code(s): I73.9 - PERIPHERAL VASCULAR DISEASE, UNSPECIFIED (8) CHF (congestive heart failure) Code(s): I50.9 - HEART FAILURE, UNSPECIFIED Assessment/Plan RIGHT HIP Fracture post internal fixation Will star PT in AM. ASHD with CHF. Denies any chest pain or SOB. Lungs are clear. Continue present med regimen with higher dose Lasix. Prostate carcinoma with bone metastasis, Undergoing Chemotherapy with Taxotere and Prednisone
[2017-01-07] MEDS ORDERED: CEFAZOLIN 2 GM/D5W 50 ML IVPB SCH (23:30)
[2017-01-07] MEDS: CEFAZOLIN 2 GM/D5W 50 ML IVPB SCH (23:55)
--- NOTE | 2017-01-08 06:35 | OP ---
DATE OF OPERATION: 01/07/2017 PREOPERATIVE DIAGNOSIS: Right intertrochanteric hip fracture. POSTOPERATIVE DIAGNOSIS: Right intertrochanteric hip fracture. PROCEDURE: Right long Gamma nailing. SURGICAL ATTENDING: Darshana Ramos MD ANESTHESIA: General with LMA. CLOSURE: A long Gamma nail with appropriate interlocks; 0 Vicryl, fascia; 2-0 silk, subcutaneous; and wilbert, skin. ESTIMATED BLOOD LOSS: Less than 100 mL. COMPLICATIONS: None. CONDITION: Stable. DESCRIPTION OF OPERATIVE PROCEDURE: Patient taken to the operating room on January 07, 2017. General anesthesia with LMA was administered by the anesthesiologist. The patient was fastened to the fracture table with all prominences well padded. The right hip area was prepped and draped in the usual sterile fashion using a shower curtain. A 3-cm longitudinal incision was made at the tip of the greater trochanter propagating proximally. It was incised. Hemostasis achieved with Bovie cautery. Sharp dissection was carried down through the fascia. A guidewire was drilled from the tip of the fascia into the intramedullary canal of the femur. Proper placement was confirmed in the AP and lateral plane by using the image intensifier. The guidewire was overreamed with a proximal reamer. A long guidewire was placed all the way down to the knee and measured for length. An 11.5-mm intramedullary reamer was used to sound the cortex and ensure appropriate diameter for the long Gamma nail. A 125-degree 11 x 380-mm louann was then malleted into place, achieving excellent position. Using the outrigger and through a small stab incision laterally, a guidewire was drilled from the lateral aspect of the femur through the louann, through the neck, into the femoral head. Proper placement confirmed on the AP and lateral plane by using the image intensifier. It was then measured, was reamed with the triple reamer, and then screwed with the appropriate size lag screw. Using the compression device, the fracture was compressed. This was done after the traction was removed. A set screw was placed in a dynamic fashion from above. The outrigger was removed. Two distal interlocks were then placed using the free-hand technique from lateral to medially through 2 small stab incisions. Proper placement was confirmed on the AP and lateral plane by using the image intensifier. All incisions were irrigated. Fascia was closed with 0 Vicryl, 2-0 silk subcutaneous, and wilbert on the skin. A sterile pressure dressing was applied. Patient awakened from anesthesia and transferred to recovery in stable condition. No complication. Estimated blood loss less than 100 mL. DARSHANA RAMOS M.D. MAJOR/[id number]
[2017-01-08 07:30] LABS: MCH 26.6 pg (25.7-33.7); MCHC 31.8 g/dl (32.0-35.9); MEAN CELL VOLUME 83.4 fl (80-96); MEAN PLT VOLUME 7.9 fl (7.5-11.1); PLATELET COUNT 241 K/MM3 (134-434); WHITE BLOOD COUNT 11.5 K/mm3 (4.0-10.0)
[2017-01-08] MEDS: CEFAZOLIN 2 GM/D5W 50 ML IVPB SCH (07:39)
[2017-01-08 07:56] LABS: ANION GAP 7 (8-16); CALCIUM 8.2 mg/dL (8.5-10.1); CO2 29 mmol/L (21-32); CREATININE 1.1 mg/dL (0.7-1.3); GLUCOSE,RANDOM 120 mg/dL (74-106)
[2017-01-08] MEDS ORDERED: PT OWN MED DRAWER 7, Y5N ONE (09:17)
[2017-01-08] MEDS: METOPROLOL SUCCINATE 25 MG TAB.SR.24H (FP) PO SCH (09:20)
[2017-01-08] MEDS: VALSARTAN 160 MG TABLET (UD) PO SCH (09:20)
[2017-01-08] MEDS: ENOXAPARIN NA (PORCINE) 40 MG/0.4 ML DISP.SYRIN SQ SCH (09:21)
[2017-01-08] MEDS: amLODIPine BESYLATE 2.5 MG TABLET (FP) PO SCH ×2 (09:21→21:27)
[2017-01-08] MEDS: cloNIDine HCL 0.1 MG TABLET PO SCH ×2 (09:21→21:27)
[2017-01-08] MEDS ORDERED: FUROSEMIDE 40 MG/4 ML INJECTABLE VIAL IVPUSH SCH (10:00)
[2017-01-08] MEDS ORDERED: ENOXAPARIN NA (PORCINE) 40 MG/0.4 ML DISP.SYRIN SQ SCH (10:00)
[2017-01-08] MEDS: oxyCODONE HCL 5 MG TABLET PO PRN (10:38)
[2017-01-08] MEDS: ACETAMINOPHEN 325 MG TABLET (FP) PO PRN (10:39)
--- NOTE | 2017-01-08 11:22 | PN ---
Progress Note (short form) - Note Progress Note: s: no cp sob palps dizzy, mild leg pain s/p surgery o: Vital Signs Period Temp Pulse Resp BP Sys/Davis Pulse Ox Last 24 Hr 98.1 F-99.2 F 60-77 15-22 138-173/45-76 93-100 Constitutional: Yes: Well Nourished, No Distress Eyes: No: Sclera Icterus HENT: No: Nasal Congestion Respiratory: Yes: CTA Bilaterally, no Rales, Wheezes. No: Accessory Muscle Use Gastrointestinal: Yes: Normal Bowel Sounds. No: Distention, Hepatomegaly, Palpable Mass, Tenderness Cardiovascular: Yes: Regular Rate and Rhythm JVD: No Heart Sounds: Yes: S1, S2. No: Gallop Murmur: No: Systolic Murmur, Diastolic Murmur Extremities: No: Cold, Cyanosis Edema: No Integumentary: No: Jaundice diaphoresis Neurological: Yes: Alert, Oriented (x3) Psychiatric: No: Agitated Current Medications Generic Name Dose Route Start Last Admin Trade Name Riverq PRN Reason Stop Dose Admin Acetaminophen 325 mg 01/07/17 18:41 01/08/17 10:39 Tylenol - PO 01/08/17 23:05 325 mg Q4H PRN Administration PAIN Amlodipine Besylate 2.5 mg 01/07/17 22:00 01/08/17 09:21 Norvasc - PO 2.5 mg BID TELLY Administration Clonidine 0.2 mg 01/07/17 22:00 01/08/17 09:21 Catapres - PO 0.2 mg BID TELLY Administration Enoxaparin Sodium 40 mg 01/08/17 10:00 01/08/17 09:21 Lovenox - SQ 40 mg DAILY TELLY Administration Fentanyl 50 mcg 01/07/17 18:22 01/07/17 18:55 Sublimaze Injection - IVPUSH 01/10/17 18:23 50 mcg [id number] PRN Administration PAIN Furosemide 40 mg 01/08/17 10:00 01/08/17 09:21 Lasix Injection - IVPUSH 40 mg DAILY TELLY Administration Metoprolol Succinate 25 mg 01/08/17 10:00 01/08/17 09:20 Toprol Xl - PO 25 mg DAILY TELLY Administration Oxycodone HCl 5 mg 01/07/17 18:41 01/08/17 10:38 Roxicodone - PO 5 mg Q4H PRN Administration PAIN Rosuvastatin Calcium 20 mg 01/07/17 22:00 01/07/17 21:02 Crestor - PO 20 mg HS TELLY Administration Valsartan 160 mg 01/08/17 10:00 01/08/17 09:20 Diovan - PO 160 mg DAILY TELLY Administration Imaging - Results Chest X-ray: Report Reviewed, Image Reviewed chest CT: extensive chronic interstitial lung disease, no signficant pleural effusions. (images and report reviewed) ECG: NSR, RBBB/LAFB; no path q's; nonsp ST-Ts anteroseptal leads likely related to RBBB--changed vs prior 2015 here, and vs prior at dr waller (LBBB then--?) CXR (gitig read): no effusions; no vasc redistribution; mild incr interstitial markings new vs prior (08/2015) ? chf; increased shadow R mediastinum from upper to lower lobes ? rotation/technique-dependent MPI 11/09 (persantine): no ST changes, no ischemia, nl EF (61%) Echo 12/2016: n lv/rv. mod lae. ra not well visualized. rvsp 54. mild ao dilation Echo 2013: nl LV size/EF; mild LVH; severe RVE (no comment on fxn); mod LAE; mild AI; mild TR; estimated PASP 47 a/p: 86 yo M with h/o HLD, HTN, CAD, CABG, Prostate ca.with mets to left humerus (received chemo and is awaiting radiation tx) and OA who presents with right hip pain following recent fall, now s/p hip surgery. HTN: -stable, cont home meds h/o CAD with prior CABG: -on ASA, statin, BB, ARB regimen at home--cont same -sees dr waller for cardiology--stress test 2 mo ago which was normal -no suspected angina sx's (chf appears acute on CHRONIC). CE's borderline, with flat trend no concern for ischemia. suspect acute diastolic CHF: -congestion possible on CXR -pt with increased NUNO sx's at home for past few months, saw dr waller no echo done--prior retirement maintenance regimen continued -here with wheezes/rales on lung exam (in absence of prior asthma/copd hx) -lasix 40 IVP 01/06 --> improvement in symptoms as well as creatinine. Lung exam now clear. Will resume home po lasix 40 bid abnormal CXR: -? new density R upper/mid/lower lung lynn along mediastinum--rule out thoracic aorta aneurysm (confirmed no known aneurysm hx per dr waller) - CT chest --> c/w interstital lung disease. pulm HTN: -peak estimated PASP on 2014 echo only 47, yet RV felt severely enlarged then ( ? RV fxn) -? chronic LV HFpEF-->RV failure -? pulm HTN sec to other - updated echo confirms moderate- severe pulm HTN. Extensive interstitial lung disease noted on ct scan.
--- NOTE | 2017-01-08 11:38 | PN ---
Progress Note (short form) - Note Progress Note: Ortho Pt seen and examined s/p right femur IM gamma nail pod #1 Selected Entries 01/08/17 10:00 Temperature 99.2 F Pulse Rate 64 Respiratory 20 Rate Blood Pressure 138/57 Laboratory Tests 01/08/17 06:35 WBC 11.5 H Hgb 8.3 L Hct 26.0 L Plt Count 241 dressing c/d/i, calf soft, nt nvi a/p PT monitor h/h dvt ppx pain control d/c planning
--- NOTE | 2017-01-08 15:23 | PN ---
Progress Note (short form) - Note Progress Note: Anesthesia POD# 1 S/P Right Gamma Nail under GA VSS doing well No N/V OOB to chair No complications to anesthesia seen. Tena Shaffer MD.
--- NOTE | 2017-01-08 16:23 | PN ---
Progress Note (short form) - Note Progress Note: >>>>>>>>>>>>>>> cover for Dr Torres Current Medications Acetaminophen (Tylenol -) 325 mg PO Q4H PRN PRN Reason: PAIN Stop: 01/08/17 23:05 Last Admin: 01/08/17 10:39 Dose: 325 mg Amlodipine Besylate (Norvasc -) 2.5 mg PO BID [facility] Last Admin: 01/08/17 09:21 Dose: 2.5 mg Clonidine (Catapres -) 0.2 mg PO BID [facility] Last Admin: 01/08/17 09:21 Dose: 0.2 mg Enoxaparin Sodium (Lovenox -) 40 mg SQ DAILY [facility] Last Admin: 01/08/17 09:21 Dose: 40 mg Fentanyl (Sublimaze Injection -) 50 mcg IVPUSH [id number] PRN PRN Reason: PAIN Stop: 01/10/17 18:23 Last Admin: 01/07/17 18:55 Dose: 50 mcg Furosemide (Lasix -) 40 mg PO BID@0600,1400 [facility] Metoprolol Succinate (Toprol Xl -) 25 mg PO DAILY [facility] Last Admin: 01/08/17 09:20 Dose: 25 mg Oxycodone HCl (Roxicodone -) 5 mg PO Q4H PRN PRN Reason: PAIN Last Admin: 01/08/17 10:38 Dose: 5 mg Rosuvastatin Calcium (Crestor -) 20 mg PO HS [facility] Last Admin: 01/07/17 21:02 Dose: 20 mg Valsartan (Diovan -) 160 mg PO DAILY [facility] Last Admin: 01/08/17 09:20 Dose: 160 mg Laboratory Results - last 24 hr 01/08/17 01/08/17 06:35 06:35 WBC 11.5 H RBC 3.12 L Hgb 8.3 L Hct 26.0 L MCV 83.4 MCH 26.6 MCHC 31.8 L RDW 18.0 H Plt Count 241 MPV 7.9 Sodium 138 Potassium 4.6 D Chloride 102 Carbon Dioxide 29 Anion Gap 7 L BUN 24 H Creatinine 1.1 Random Glucose 120 H Calcium 8.2 L Vital Signs Temperature 98.1 F 01/08/17 14:00 Pulse Rate 68 01/08/17 14:00 Respiratory Rate 17 01/08/17 14:00 Blood Pressure 138/57 01/08/17 10:00 O2 Sat by Pulse Oximetry (%) 98 01/08/17 09:00 CC: drowsy `````````````````` lungs--grossly clear heart--RR abd--soft neuro--somnolent ```````````````````` Summ > Htn w/ ASHD-stable; resume cardiac meds > pulm HTN:--2nd chronic lung dz; sat WNL > anemia--post Op; will track CBC > S/p ORIF--Rt Hip ~~~~~~~~~~~~~~~~~~ Dr Nieves---for dr Torres
--- NOTE | 2017-01-08 16:50 | EKG ---
Test Reason : Blood Pressure : / mmHG Vent. Rate : 069 BPM Atrial Rate : 069 BPM P-R Int : 162 ms QRS Dur : 144 ms QT Int : 456 ms P-R-T Axes : 041 -54 -05 degrees QTc Int : 488 ms NORMAL SINUS RHYTHM RIGHT BUNDLE BRANCH BLOCK LEFT ANTERIOR FASCICULAR BLOCK BIFASCICULAR BLOCK MINIMAL VOLTAGE CRITERIA FOR LVH, MAY BE NORMAL VARIANT ABNORMAL ECG WHEN COMPARED WITH ECG OF 22-DEC-2014 12:02, (RBBB AND LEFT ANTERIOR FASCICULAR BLOCK) IS NOW PRESENT Confirmed by JIM QUIROZ MD ([id number]) on 01/08/2017 4:49:49 PM Referred By: Confirmed By:JIM QUIROZ MD
[2017-01-08] MEDS: ROSUVASTATIN CA 10 MG TABLET (FP) PO SCH (21:27)
[2017-01-09] MEDS: FUROSEMIDE 40 MG TABLET (FP) PO SCH ×2 (06:41→17:04)
[2017-01-09 08:37] LABS: MCH 27.3 pg (25.7-33.7); MCHC 32.9 g/dl (32.0-35.9); MEAN PLT VOLUME 8.5 fl (7.5-11.1); PLATELET COUNT 261 K/MM3 (134-434); RDW 18.2 % (11.9-15.9); WHITE BLOOD COUNT 9.5 K/mm3 (4.0-10.0)
[2017-01-09 08:55] LABS: ANION GAP 7 (8-16); CALCIUM 8.3 mg/dL (8.5-10.1); CO2 28 mmol/L (21-32); CREATININE 1.3 mg/dL (0.7-1.3); GLUCOSE,RANDOM 92 mg/dL (74-106)
[2017-01-09] MEDS ORDERED: PT OWN MED DRAWER 7, Y5N ONE ×3 (09:12→21:49)
--- NOTE | 2017-01-09 09:12 | PN ---
Progress Note (short form) - Note Progress Note: Pt seen and examined. He is doing very well, is very comfortable. No c/o pain, now on POD#2 s/p R Gamma nail. AVSS but H/H trending low, now at 8.3/26.0 RLE looks good, NVI, excellent ROM, dressing CDI. Overall pt doing well. Con't P.T. He would like to go to [facility].
[2017-01-09] MEDS: METOPROLOL SUCCINATE 25 MG TAB.SR.24H (FP) PO SCH ×2 (09:13→09:18)
[2017-01-09] MEDS: amLODIPine BESYLATE 2.5 MG TABLET (FP) PO SCH ×3 (09:13→21:48)
[2017-01-09] MEDS: VALSARTAN 160 MG TABLET (UD) PO SCH ×2 (09:13→09:19)
[2017-01-09] MEDS: cloNIDine HCL 0.1 MG TABLET PO SCH ×3 (09:13→21:50)
[2017-01-09] MEDS: oxyCODONE HCL 5 MG TABLET PO PRN (09:16)
[2017-01-09] MEDS: ENOXAPARIN NA (PORCINE) 40 MG/0.4 ML DISP.SYRIN SQ SCH (09:28)
[2017-01-09] MEDS: ROSUVASTATIN CA 10 MG TABLET (FP) PO SCH (21:48)
--- NOTE | 2017-01-09 23:54 | PN ---
Progress Note, Physician History of Present Illness: Denies any pain at rest but gets severe pain when he stands. Denies any chest pain or SOB. - Current Medication List Current Medications: Active Medications Amlodipine Besylate (Norvasc -) 2.5 mg PO BID [facility] Last Admin: 01/09/17 21:48 Dose: 2.5 mg Clonidine (Catapres -) 0.2 mg PO BID [facility] Last Admin: 01/09/17 21:50 Dose: 0.2 mg Enoxaparin Sodium (Lovenox -) 40 mg SQ DAILY [facility] Last Admin: 01/09/17 09:28 Dose: Not Given Fentanyl (Sublimaze Injection -) 50 mcg IVPUSH [id number] PRN PRN Reason: PAIN Stop: 01/10/17 18:23 Last Admin: 01/07/17 18:55 Dose: 50 mcg Furosemide (Lasix -) 40 mg PO BID@0600,1400 [facility] Last Admin: 01/09/17 17:04 Dose: Not Given Metoprolol Succinate (Toprol Xl -) 25 mg PO DAILY [facility] Last Admin: 01/09/17 09:18 Dose: 25 mg Oxycodone HCl (Roxicodone -) 5 mg PO Q4H PRN PRN Reason: PAIN Last Admin: 01/09/17 09:16 Dose: 5 mg Rosuvastatin Calcium (Crestor -) 20 mg PO [facility] Last Admin: 01/09/17 21:48 Dose: 20 mg Valsartan (Diovan -) 160 mg PO DAILY [facility] Last Admin: 01/09/17 09:19 Dose: 160 mg - Objective Vital Signs: Vital Signs Temperature 99.2 F 01/09/17 18:00 Pulse Rate 75 01/09/17 18:00 Respiratory Rate 20 01/09/17 18:00 Blood Pressure 112/41 01/09/17 18:00 O2 Sat by Pulse Oximetry (%) 96 01/08/17 20:53 Constitutional: Yes: Well Nourished, No Distress, Calm Eyes: Yes: Conjunctiva Clear, EOM Intact HENT: Yes: WNL Neck: Yes: Supple Cardiovascular: Yes: Regular Rate and Rhythm, S1, S2 Respiratory: Yes: Regular, Rales Gastrointestinal: Yes: Normal Bowel Sounds, Soft Genitourinary: Yes: WNL Musculoskeletal: Yes: Joint Stiffness Extremities: Yes: WNL Edema: No Peripheral Pulses WNL: Yes Integumentary: Yes: WNL Wound/Incision: Yes: Clean/Dry Neurological: Yes: Alert, Oriented ...Motor Strength: WNL Psychiatric: Yes: Alert, Oriented Labs: CBC, BMP 01/09/17 07:30 01/09/17 07:30 INR, PTT INR 1.12 (0.82-1.09) 01/05/17 20:30 Problem List - Problems (1) Trochanteric fracture of right femur Assessment/Plan: Underwent pinning of the intertrochanteric fracture and requires PT Code(s): S72.101A - UNSP TROCHANTERIC FRACTURE OF RIGHT FEMUR, INIT FOR CLOS FX Qualifiers: Encounter type: initial encounter Fracture type: closed Qualified Code(s): S72.101A - Unspecified trochanteric fracture of right femur, initial encounter for closed fracture (2) Coronary atherosclerosis Assessment/Plan: After treatment with Lasix IV SOB improved Code(s): I25.10 - ATHSCL HEART DISEASE OF [place] CORONARY ARTERY W/O ANG PCTRS (3) Hyperlipidemia Code(s): E78.5 - HYPERLIPIDEMIA, UNSPECIFIED (4) Hypertension Assessment/Plan: BP is under good control with present meds Code(s): I10 - ESSENTIAL (PRIMARY) HYPERTENSION (5) Osteoarthritis of knees, bilateral Code(s): M17.0 - BILATERAL PRIMARY OSTEOARTHRITIS OF KNEE (6) Prostate carcinoma Assessment/Plan: Undergoing chemotherapy with Taxiotere and Prednisone at [facility] in [place] and improved Code(s): C61 - MALIGNANT NEOPLASM OF PROSTATE (7) Peripheral vascular disease Code(s): I73.9 - PERIPHERAL VASCULAR DISEASE, UNSPECIFIED (8) CHF (congestive heart failure) Assessment/Plan: His CHF improved with higher dose of Lasix Code(s): I50.9 - HEART FAILURE, UNSPECIFIED Assessment/Plan Post op pinning of hip fracture CHF Hypertension Anemia due to blood loss Plan:Continue PT for ambulation and may require prolonged [facility] a [facility] facility. CFH under good controll with Lasix, Hypertension under good control 's f/u appreciated
[2017-01-10] MEDS: FUROSEMIDE 40 MG TABLET (FP) PO SCH ×2 (05:48→15:22)
[2017-01-10 08:30] LABS: BASOPHIL 0.3 % (0-2.0); EOSINOPHIL 3.8 % (0-4.5); MCH 27.2 pg (25.7-33.7); MCHC 32.6 g/dl (32.0-35.9); MEAN CELL VOLUME 83.5 fl (80-96); MEAN PLT VOLUME 8.2 fl (7.5-11.1); NEUTROPHILS 78.3 % (42.8-82.8); PLATELET COUNT 245 K/MM3 (134-434); RDW 17.6 % (11.9-15.9); WHITE BLOOD COUNT 10.2 K/mm3 (4.0-10.0)
--- NOTE | 2017-01-10 09:52 | PN ---
Progress Note (short form) - Note Progress Note: Ortho Pt seen and examined s/p right femur IM gamma nail Selected Entries 01/10/17 08:36 Temperature 99.2 F Pulse Rate 78 Respiratory 18 Rate Blood Pressure 133/58 Laboratory Tests 01/10/17 06:40 WBC 10.2 H Hgb 8.7 L D Hct 26.6 L Plt Count 245 dressing c/d/i, calf soft, nt nvi a/p PT dvt ppx pain control d/c planning
[2017-01-10] MEDS ORDERED: MAGNESIUM HYDROX 2400MG/30ML ORAL SUSPENSION 30 ML CUP PO ONE (10:00)
[2017-01-10] MEDS ORDERED: FUROSEMIDE 20 MG TABLET (FP) PO SCH (10:00)
[2017-01-10] MEDS ORDERED: PT OWN MED DRAWER 7, Y5N ONE (10:22)
[2017-01-10] MEDS: amLODIPine BESYLATE 2.5 MG TABLET (FP) PO SCH ×2 (11:05→21:22)
[2017-01-10] MEDS: VALSARTAN 160 MG TABLET (UD) PO SCH (11:05)
[2017-01-10] MEDS: cloNIDine HCL 0.1 MG TABLET PO SCH ×2 (11:05→21:22)
[2017-01-10] MEDS: METOPROLOL SUCCINATE 25 MG TAB.SR.24H (FP) PO SCH (11:05)
[2017-01-10] MEDS: ENOXAPARIN NA (PORCINE) 40 MG/0.4 ML DISP.SYRIN SQ SCH (11:06)
[2017-01-10] MEDS: POLYETHYLENE GLYCOL 3350 119 GM BTL PO SCH (11:25)
[2017-01-10] MEDS: oxyCODONE HCL 5 MG TABLET PO PRN (11:27)
--- NOTE | 2017-01-10 14:53 | PN ---
Progress Note (short form) - Note Progress Note: ^^^^^^^^^^^^^^^ cover for Dr Torres Current Medications Amlodipine Besylate (Norvasc -) 2.5 mg PO BID [facility] Last Admin: 01/10/17 11:05 Dose: 2.5 mg Clonidine (Catapres -) 0.2 mg PO BID [facility] Last Admin: 01/10/17 11:05 Dose: 0.2 mg Enoxaparin Sodium (Lovenox -) 40 mg SQ DAILY [facility] Last Admin: 01/10/17 11:06 Dose: 40 mg Fentanyl (Sublimaze Injection -) 50 mcg IVPUSH [id number] PRN PRN Reason: PAIN Stop: 01/10/17 18:23 Last Admin: 01/07/17 18:55 Dose: 50 mcg Furosemide (Lasix -) 40 mg PO BID@0600,1400 [facility] Metoprolol Succinate (Toprol Xl -) 25 mg PO DAILY [facility] Last Admin: 01/10/17 11:05 Dose: 25 mg Oxycodone HCl (Roxicodone -) 5 mg PO Q4H PRN PRN Reason: PAIN Last Admin: 01/10/17 11:27 Dose: 5 mg Polyethylene Glycol (Miralax (For Daily Use) -) 17 gm PO DAILY [facility] Last Admin: 01/10/17 11:25 Dose: 17 gm Rosuvastatin Calcium (Crestor -) 20 mg PO HS [facility] Last Admin: 01/09/17 21:48 Dose: 20 mg Valsartan (Diovan -) 160 mg PO DAILY [facility] Last Admin: 01/10/17 11:05 Dose: 160 mg Laboratory Results - last 24 hr 01/10/17 06:40 WBC 10.2 H RBC 3.18 L Hgb 8.7 L D Hct 26.6 L MCV 83.5 MCH 27.2 MCHC 32.6 RDW 17.6 H Plt Count 245 MPV 8.2 Neutrophils % 78.3 Lymphocytes % 8.2 Monocytes % 9.4 Eosinophils % 3.8 Basophils % 0.3 Vital Signs Temperature 98.0 F 01/10/17 14:00 Pulse Rate 76 01/10/17 14:00 Respiratory Rate 17 01/10/17 14:00 Blood Pressure 123/44 01/10/17 14:00 O2 Sat by Pulse Oximetry (%) 96 01/08/17 20:53 CC: c/o periodic muscle cramps i both legs, not severe `````````````````` lungs--grossly clear heart--RR abd--soft Ext--Rt hip w dressing; no redness of the LE's neuro--coherent ```````````````````` Summ > anemia--post hemorrhagic after ORIF; required 1 U of PC; Hgb now improved; recheck CBC in AM > Htn w/ ASHD-stable BP > pulm HTN:--2nd chronic lung dz; sat WNL > Leg cramps--bilat; mild; will check Chemistries/Mg > S/p ORIF--Rt Hip ~~~~~~~~~~~~~~~~~~ Dr Nieves---for dr Torres
[2017-01-10] MEDS: ROSUVASTATIN CA 10 MG TABLET (FP) PO SCH (21:22)
[2017-01-11] MEDS: FUROSEMIDE 40 MG TABLET (FP) PO SCH ×2 (06:25→13:02)
[2017-01-11] MEDS: amLODIPine BESYLATE 2.5 MG TABLET (FP) PO SCH (09:05)
[2017-01-11] MEDS: VALSARTAN 160 MG TABLET (UD) PO SCH (09:05)
[2017-01-11] MEDS: METOPROLOL SUCCINATE 25 MG TAB.SR.24H (FP) PO SCH (09:05)
[2017-01-11] MEDS: ENOXAPARIN NA (PORCINE) 40 MG/0.4 ML DISP.SYRIN SQ SCH (09:05)
[2017-01-11] MEDS: POLYETHYLENE GLYCOL 3350 119 GM BTL PO SCH (09:05)
[2017-01-11 09:06] LABS: MCH 27.5 pg (25.7-33.7); MCHC 32.9 g/dl (32.0-35.9); MEAN CELL VOLUME 83.7 fl (80-96); MEAN PLT VOLUME 8.5 fl (7.5-11.1); PLATELET COUNT 304 K/MM3 (134-434); RDW 17.7 % (11.9-15.9); WHITE BLOOD COUNT 10.6 K/mm3 (4.0-10.0)
[2017-01-11] MEDS: cloNIDine HCL 0.1 MG TABLET PO SCH (09:08)
[2017-01-11] MEDS ORDERED: PT OWN MED DRAWER 7, Y5N ONE (09:08)
--- NOTE | 2017-01-11 09:13 | PN ---
Progress Note, Physician Chief Complaint: hip frx History of Present Illness: denies sob, orthopnea, wheezing no cp no palpitations pain at hip site when did PT yesterday - Current Medication List Current Medications: Active Medications Amlodipine Besylate (Norvasc -) 2.5 mg PO BID [facility] Last Admin: 01/10/17 21:22 Dose: 2.5 mg Clonidine (Catapres -) 0.2 mg PO BID [facility] Last Admin: 01/10/17 21:22 Dose: 0.2 mg Enoxaparin Sodium (Lovenox -) 40 mg SQ DAILY [facility] Last Admin: 01/10/17 11:06 Dose: 40 mg Furosemide (Lasix -) 40 mg PO BID@0600,1400 [facility] Last Admin: 01/11/17 06:25 Dose: 40 mg Metoprolol Succinate (Toprol Xl -) 25 mg PO DAILY [facility] Last Admin: 01/10/17 11:05 Dose: 25 mg Oxycodone HCl (Roxicodone -) 5 mg PO Q4H PRN PRN Reason: PAIN Last Admin: 01/10/17 11:27 Dose: 5 mg Polyethylene Glycol (Miralax (For Daily Use) -) 17 gm PO DAILY [facility] Last Admin: 01/10/17 11:25 Dose: 17 gm Rosuvastatin Calcium (Crestor -) 20 mg PO HS [facility] Last Admin: 01/10/17 21:22 Dose: 20 mg Valsartan (Diovan -) 160 mg PO DAILY [facility] Last Admin: 01/10/17 11:05 Dose: 160 mg - Objective Vital Signs: Vital Signs Temperature 99.2 F 01/11/17 08:53 Pulse Rate 80 01/11/17 08:53 Respiratory Rate 20 01/11/17 08:53 Blood Pressure 136/58 01/11/17 08:53 O2 Sat by Pulse Oximetry (%) 97 01/10/17 20:20 Constitutional: Yes: Well Nourished, No Distress, Calm Cardiovascular: Yes: Regular Rate and Rhythm, S1, S2. No: JVD, Gallop, Murmur Respiratory: Yes: Regular, CTA Bilaterally. No: Accessory Muscle Use, Rales, Wheezes Extremities: No: Cold Edema: No Neurological: Yes: Alert, Oriented Psychiatric: No: Agitated Labs: INR, PTT INR 1.12 (0.82-1.09) 01/05/17 20:30 Assessment/Plan chest CT: extensive chronic interstitial lung disease, no signficant pleural effusions. (images and report reviewed) ECG: NSR, RBBB/LAFB; no path q's; nonsp ST-Ts anteroseptal leads likely related to RBBB--changed vs prior 2014 here, and vs prior at dr waller (LBBB then--?) CXR (gitig read): no effusions; no vasc redistribution; mild incr interstitial markings new vs prior (08/2015) ? chf; increased shadow R mediastinum from upper to lower lobes ? rotation/technique-dependent MPI 11/09 (persantine): no ST changes, no ischemia, nl EF (61%) Echo 12/2016: n lv/rv. mod lae. ra not well visualized. rvsp 54. mild ao dilation Echo 2013: nl LV size/EF; mild LVH; severe RVE (no comment on fxn); mod LAE; mild AI; mild TR; estimated PASP 47 a/p: 86 yo M with h/o HLD, HTN, CAD, CABG, Prostate ca.with mets to left humerus (received chemo and is awaiting radiation tx) and OA who presents with right hip pain following recent fall, now s/p hip surgery. [facility] fall with hip frx: -s/p surgical repair h/o CAD with prior CABG: -on ASA, statin, BB, ARB regimen at home--cont same -sees dr waller for cardiology--stress test 2 mo ago which was normal -no suspected angina sx's (chf appears acute on CHRONIC), trop 0.1 x 2 not concerning for ACS, no acute isch ecg changes suspect acute diastolic CHF: -congestion possible on CXR (vs all chronic interstitial changes) -pt with increased NUNO sx's at home for past few months -here with wheezes/rales on lung exam (in absence of prior asthma/copd hx) -BNP 1900 (no priors) -lasix 40 IVP 01/06 --> improvement in symptoms as well as creatinine. Lung exam cleared, resumed home po lasix 40 bid -appears clinically euvolemic at present, asymptomatic ILDz: - extensive changes on CT here, appearing chronic/interstitial - ? if previously known or not - may be cause of his pulm HTN--warrants 6MWT to assess for hypoxia as outpt and home O2 if hypoxia is documented--defer to dr james/dr waller outpt f/u mod pulm HTN (chronic): -peak estimated PASP on 2013 echo only 47, yet RV felt severely enlarged then ( ? RV fxn) - updated echo here confirms moderate pulm HTN (est peak RVSP 54), RV reportedly normal size/fxn - assessment for hypoxia and home O2 as outpt as disc'd above - consider sleep study if pt not found to be hypoxic HTN: -stable, cont home meds OK FOR D/C FROM [facility] P.O[facility]V.
[2017-01-11 09:24] LABS: ANION GAP 8 (8-16); CALCIUM 8.5 mg/dL (8.5-10.1); CO2 31 mmol/L (21-32); GLUCOSE,RANDOM 120 mg/dL (74-106); MAGNESIUM 2.9 mg/dL (1.8-2.4)
[2017-01-11] MEDS ORDERED: BISACODYL 5 MG TABLET.DR (FP) PO ONE (10:15)
[2017-01-11] MEDS: oxyCODONE HCL 5 MG TABLET PO PRN (11:34)
[2017-01-11 13:02] VITALS: BP 118/55; PULSE 77; TEMP 100.1
--- NOTE | 2017-01-11 15:33 | DS ---
Physical Examination Vital Signs: Vital Signs Temperature 100.1 F H 01/11/17 13:01 Pulse Rate 77 01/11/17 13:01 Respiratory Rate 20 01/11/17 13:01 Blood Pressure 118/55 01/11/17 13:01 O2 Sat by Pulse Oximetry (%) 92 L 01/11/17 09:00 Findings/Remarks: Post right hip pinning for intertrochanteric fracture, Transfused one unti of packed RBC. Repeat Hb 8.9. Denies SOB, chest pain or any palpitations. Constitutional: Yes: No Distress, Calm Eyes: Yes: Conjunctiva Clear, EOM Intact HENT: Yes: WNL Neck: Yes: Supple Cardiovascular: Yes: Regular Rate and Rhythm, S1, S2 Respiratory: Yes: CTA Bilaterally Gastrointestinal: Yes: Normal Bowel Sounds, Soft Musculoskeletal: Yes: Joint Stiffness Extremities: Yes: Other (unable to RLE as yet due to pain and weakness) Edema: No Peripheral Pulses WNL: Yes Integumentary: Yes: WNL Wound/Incision: Yes: Clean/Dry, Well Approximated Neurological: Yes: Alert, Oriented, Cran Nerves II-XII Intact Psychiatric: Yes: Alert, Oriented Labs: CBC, BMP 01/11/17 07:46 01/11/17 07:46 Discharge Summary Reason For Visit: TROCHANTERIC FRACTURE OF RIGH FEMUR CHF with progressive SOB, Interstitial lung disease with possibility of PHTN Hypertensive CVD Prostate Carcinoma with mets to bones on chemoRx s/P angioplasty with stent Procedures: Principal: CT scan chest. echocardiogram Hospital Course: 86 y/o who fell from a chair and sustained a fracture right hip. Was found to have progressive SOB TV HOST and was evaluated by Dr. Mccain with Chest CT, echocardiogram and close f/u. Was treated IV Lasix and CHF improved and underwent successful pinning of the intertrochanteric fracture. Postop found to have dropped Hb and was transfused one unit of PRBCs which he tolerated well and Hb ifeoma 8.9. He underwent PT for ambulation but had significant amt of pain and it was felt that he needs prolonged PT at [facility] and he was transferred to [facility]. Condition: Improved - Instructions Diet, Activity, Other Instructions: OOB as tolerated, may bear weight as tolerated right leg Report any increased pain, wound drainage, or temp 101 or over to MD Referrals: Damien Ramos MD [Staff Physician] - Buck Torres MD [Primary Care Provider] - Disposition: [facility] - Home Medications Comprehensive Discharge Medication List: Ambulatory Orders Amlodipine Besylate [Norvasc -] 2.5 mg PO BID 01/05/17 Ascorbic Acid [Vitamin C -] 1,000 mg PO DAILY 01/05/17 Aspirin [Ecotrin] 81 mg PO BID 01/05/17 Clonidine HCl [Catapres -] 0.2 mg PO BID 01/05/17 Furosemide [Lasix -] 40 mg PO BID 01/05/17 Metoprolol Succinate [Toprol XL -] 25 mg PO DAILY 01/05/17 Rosuvastatin [Crestor -] 20 mg PO DAILY 01/05/17 Oxycodone HCl [Roxicodone -] 5 mg PO Q4H PRN #0 tablet MDD 4 01/11/17 Polyethylene Glycol 3350 [Miralax 119 gm Btl -] 17 gm PO DAILY #0 bottle Valsartan [Diovan] 160 mg PO DAILY #0 tablet 01/11/17
== END 2017-01-11 14:30 | DRG 480 ==
LOC: JER 16:12 → JERBED 20:04 → UNDOADMIN 20:18 → J6S 22:05
PROVIDERS: ADMIT Internal Medicine Hematology & Oncology; ATTEND Internal Medicine Hematology & Oncology
PROC: 0QS604Z Reposition Right Upper Femur with Internal Fixation Device, Open Approach (ICD-10-PCS; principal; 2017-01-07 15:00)
PROC: 30233N1 Transfusion of Nonautologous Red Blood Cells into Peripheral Vein, Percutaneous Approach (ICD-10-PCS; 2017-01-09)
DX: S72.141A Displaced intertrochanteric fracture of right femur, initial encounter for closed fracture (principal); I50.33 Acute on chronic diastolic (congestive) heart failure; C79.51 Secondary malignant neoplasm of bone; D62 Acute posthemorrhagic anemia; J84.9 Interstitial pulmonary disease, unspecified; I25.10 Atherosclerotic heart disease of native coronary artery without angina pectoris; Z95.1 Presence of aortocoronary bypass graft; E78.5 Hyperlipidemia, unspecified; Z87.891 Personal history of nicotine dependence; C61 Malignant neoplasm of prostate; I73.9 Peripheral vascular disease, unspecified; I11.0 Hypertensive heart disease with heart failure; Y99.8 Other external cause status; R25.2 Cramp and spasm; I27.2 Other secondary pulmonary hypertension; I45.10 Unspecified right bundle-branch block; W07.XXXA Fall from chair, initial encounter; Y93.89 Activity, other specified; Y92.098 Other place in other non-institutional residence as the place of occurrence of the external cause
CPT/HCPCS: 36415; 36430; 71010-TC; 71250-TC; 73523-TC; 76000-TC; 80048; 80053; 81003; 83735; 83880; 84484; 84550; 85025; 85027; 85610; 86850; 86900; 86901; 86922; 93005; 93010; 93306-TC; 94760; 97116-GP; 97161-GP; 99283-25; P9038; P9058

== ENCOUNTER 2017-11-24 12:27 | Day surgery (SDC) | payer OTHER, BC ==
[2017-11-24 20:40] LABS: BASO % 0.5 % (0-2.0); EOS % 2.3 % (0-4.5); HEMATOCRIT 26.2 % (35.4-49); LYMPH % 7.2 % (8-40); MCH 23.6 pg (25.7-33.7); MCHC 30.5 g/dl (32.0-35.9); MEAN CELL VOLUME 77.5 fl (80-96); MEAN PLT VOLUME 8.1 fl (7.5-11.1); MONO % 7.7 % (3.8-10.2); NEUT % 82.3 % (42.8-82.8); PLATELET COUNT 369 K/MM3 (134-434); RBC 3.38 M/mm3 (4.00-5.60); RDW 18.8 % (11.9-15.9)
[2017-11-24 20:54] VITALS: BP 136/63; PULSE 77; TEMP 97.8
== END 2017-11-24 20:35 | disposition home or self-care (01) ==
LOC: J6S 12:27 → JBLOOD 12:27
PROVIDERS: ATTEND Internal Medicine Hematology & Oncology
PROC: 30233N1 Transfusion of Nonautologous Red Blood Cells into Peripheral Vein, Percutaneous Approach (ICD-10-PCS; principal; 2017-11-24)
DX: C61 Malignant neoplasm of prostate (principal); D63.0 Anemia in neoplastic disease
CPT/HCPCS: 36415; 36430; 85025; 86850; 86900; 86901; 86922; P9038; P9058